=== PATIENT | female | born 1950 | race African-American/Black ===

== ENCOUNTER → 2018-02-04 | Outpatient (REF) | payer MEDICARE ==
[~2018-02-04] MED LIST: ALLOPURINOL100 MG PO; BACTRIM DS1 TAB OR; BACTRIM DS1 TAB PO; CEPHALEXIN500 MG OR; CLONIDINE0.1 MG PO; COLCHICINE0.6 M2 PO; EC ASPIRIN325 MG PO; ECOTRIN325 MG OR; ENTERIC COATED325 MG PO; GABAPENTIN100 MG PO; GLIMEPIRIDE2 MG PO; GLYBURIDE2.5 M1 OR; HYZAAR1 TA1 OR; HYZAAR1 TA2 PO; JANUVIA50 MG PO; LORTAB 7.57.5 MG PO; LOVASTATIN20 MG PO; METFORMIN500 M1 PO; METFORMIN500 MG PO; NITROSTAT0.4 MG PO; NORVASC10 M1 PO; NORVASC5 MG OR; NYSTATIN100000 M1 MT; PRAVACHOL40 MG PO; STERAPRED DS10 MG PO; TRAMADOL HCL50 MG PO; TRAVATAN0.004 % OP; TRAVATAN0.0041 OU; ULTRAM50 MG OR
== END | disposition home or self-care (01) ==
LOC: INF 07:41
PROVIDERS: ATTEND Internal Medicine
PROC: 3C1ZX8Z Irrigation of Indwelling Device using Irrigating Substance, External Approach (ICD-10-PCS; principal; 2018-02-04)
DX: Z45.2 Encounter for adjustment and management of vascular access device (principal)

== ENCOUNTER 2018-07-02 08:18 | Outpatient (REF) | payer MEDICARE | END 2018-07-02 16:58 | disposition home or self-care (01) | LOC: INF 08:18 | PROVIDERS: ATTEND Internal Medicine | PROC: 3C1ZX8Z Irrigation of Indwelling Device using Irrigating Substance, External Approach (ICD-10-PCS; principal; 2018-07-02) | DX: Z45.2 Encounter for adjustment and management of vascular access device (principal) ==

== ENCOUNTER 2018-07-28 10:03 | Emergency (ER) | payer MEDICARE ==
[~2018-07-28] VITALS: Ht 162.6 cm; Wt 125.9 kg
[2018-07-28] MEDS ORDERED: AMLODIPINE5 MG PO (10:18)
[2018-07-28 10:55] LABS: HEMATOCRIT 37.1 % (37.0-47.0); HEMOGLOBIN 11.9 g/dl (12.0-16.0); IMMATURE GRANULOCYTES 0.8 % (0.0-5.0); MEAN CELL VOLUME 98.4 fL CALC (80.0-100.0); MEAN CORPUSCULAR HGB 31.6 pG CALC (26.0-32.0); MEAN CORPUSCULAR HGB CONC 32.1 g/L CALC (32.0-36.0); NEUT# 3.07 thou/uL (2.00-7.15); RED BLOOD COUNT 3.77 mill/uL (4.20-5.60); RED CELL DISTRI WIDTH 13.2 % (11.5-15.5)
[2018-07-28 10:55] LABS: URINE BILIRUBIN - DIPSTICK NEGATIVE (NEGATIVE); URINE BLOOD DIPSTICK SMALL (NEGATIVE); URINE COLOR YELLOW; URINE GLUCOSE - DIPSTICK NEGATIVE (NEGATIVE); URINE KETONE NEGATIVE (NEGATIVE); URINE LEUK ESTERASE NEGATIVE (NEGATIVE); URINE NITRITE - DIPSTICK NEGATIVE (Negative); URINE PROTEIN - DIPSTICK NEGATIVE (NEG-TRACE); URINE UROBILINOGEN - DIPSTICK 0.2 E.U./dL (0.2)
[2018-07-28 11:05] LABS: URINE RBC 0-2 RBC/hpf (0-5); URINE SQUAMOUS EPITHELIAL CELL FEW EPI/hpf (0-FEW); URINE WBC 0-2 WBC/hpf (0-5)
[2018-07-28 11:20] LABS: ALBUMIN 4.2 g/dL (3.2-5.0); BILIRUBIN, TOTAL 0.4 mg/dL (0.0-1.4); CREATININE 1.3 mg/dL (0.5-1.0); POTASSIUM 3.6 mmol/l (3.5-5.1); TOTAL PROTEIN 7.8 g/dL (6.3-8.2)
[2018-07-28 12:30] VITALS: BP 159/70
== END 2018-07-28 13:03 | disposition home or self-care (01) ==
LOC: ED 10:03
PROVIDERS: Family Medicine
DX: R31.9 Hematuria, unspecified (principal); R10.32 Left lower quadrant pain; R10.31 Right lower quadrant pain
CPT/HCPCS: Q9967

== ENCOUNTER → 2018-07-30 | Outpatient (REF) | payer MEDICARE ==
[~2018-07-30] MED LIST changes: +AMLODIPINE5 MG PO
== END | disposition home or self-care (01) ==
LOC: INF 08:05
PROVIDERS: ATTEND Internal Medicine
PROC: 3C1ZX8Z Irrigation of Indwelling Device using Irrigating Substance, External Approach (ICD-10-PCS; principal; 2018-07-30)
DX: Z45.2 Encounter for adjustment and management of vascular access device (principal)

== ENCOUNTER 2019-11-14 18:20 | Observation (INO) | payer MEDICARE ==
[~2019-11-14] VITALS: Ht 162.6 cm; Wt 132.5 kg
--- NOTE | 2019-11-14 18:20 | NUR ---
PATIENT TO ROOM VIA WHEELCHAIR AND PHYSICIAN NOTIFIED OF PATIENT STATUS
--- NOTE | 2019-11-14 19:00 | NUR ---
PT IN NO DISTRESS, NO SOB OR CP
[2019-11-14 19:13] LABS: URINE BILIRUBIN - DIPSTICK NEGATIVE (NEGATIVE); URINE BLOOD DIPSTICK NEGATIVE (NEGATIVE); URINE COLOR YELLOW; URINE GLUCOSE - DIPSTICK NEGATIVE (NEGATIVE); URINE KETONE NEGATIVE (NEGATIVE); URINE LEUK ESTERASE NEGATIVE (NEGATIVE); URINE NITRITE - DIPSTICK NEGATIVE (Negative); URINE PH 5.5 (4.5-8.0); URINE PROTEIN - DIPSTICK 30 mg/dL (NEG-TRACE); URINE SPECIFIC GRAVITY >=1.030; URINE UROBILINOGEN - DIPSTICK 0.2 E.U./dL (0.2)
[2019-11-14 19:14] LABS: HEMATOCRIT 38.2 % (37.0-47.0); HEMOGLOBIN 12.3 g/dl (12.0-16.0); IMMATURE GRANULOCYTES 0.5 % (0.0-5.0); MEAN CELL VOLUME 97.7 fL CALC (80.0-100.0); MEAN CORPUSCULAR HGB 31.5 pG CALC (26.0-32.0); MEAN CORPUSCULAR HGB CONC 32.2 g/dL CAL (32.0-36.0); NEUT# 3.65 thou/uL (2.00-7.15); RED BLOOD COUNT 3.91 mill/uL (4.20-5.60)
[2019-11-14 19:16] LABS: URINE RBC 0-2 RBC/hpf (0-5); URINE SQUAMOUS EPITHELIAL CELL FEW EPI/hpf (0-FEW); URINE WBC 0-2 WBC/hpf (0-5)
--- NOTE | 2019-11-14 19:24 | NUR ---
XRAY AT BEDSIDE
[2019-11-14 19:33] LABS: ALKALINE PHOSPHATASE 78 u/l (38-126); ANION GAP 9 (6-22 (CALC)); BUN 26 mg/dL (8-23); BUN/CREATININE RATIO 26 (12-20 (CALC)); CARBON DIOXIDE 28 mmol/l (22-30); CHLORIDE 106 mmol/l (95-108); GFR 55 ML/MIN (>=60 (CALC)); GFR FOR AFR.AMER. > 60 ML/MIN (>=60 (CALC)); POTASSIUM 3.5 mmol/l (3.5-5.1); PROTHROMBIN TIME 10.4 SECONDS (9.0-12.5); SGOT/AST 47 u/l (9-36); SODIUM 139 mmol/l (137-146); TOTAL PROTEIN 8.8 g/dL (6.3-8.2)
[2019-11-14 19:35] LABS: ALBUMIN 4.7 g/dL (3.2-5.0); BILIRUBIN, TOTAL 0.4 mg/dL (0.0-1.4)
[2019-11-14 19:45] LABS: MYOGLOBIN 55 ng/mL (0 - 62)
--- NOTE | 2019-11-14 20:27 | NUR ---
TO BR VIA W/C.
--- NOTE | 2019-11-14 20:40 | NUR ---
TO RADIOLOGY VIA W/C WITH MASK FOR COVID
[2019-11-14] MEDS ORDERED: EYE DROPS (22:21)
[2019-11-14] MEDS ORDERED: ANTIBIOTIC (22:22)
--- NOTE | 2019-11-14 22:47 | NUR ---
REPORT TO ANJALI/NURSE MED SURG.
[2019-11-14 22:55] VITALS: BP 153/91
--- NOTE | 2019-11-14 22:55 | NUR ---
PT ARRIVED TO THE FLOOR VIA WHEELCHAIR, ACCOMPANIED BY ED STAFF. PT ALERT AND ORIENTED. ASSESSMENT COMPLETED AND VS OBTAINED. RESPIRATIONS EVEN AND UNLABORED ON RA. LUNG SOUND CLEAR. PEDAL PULSES WEAK. PT REPORTS HAVING PAIN IN RIGHT HIP AND LOWER BACK, PT MEDICATED WITH TYLENOL PER EMAR ORDERS. SKINS INTACT. TELE IN PLACE. PT ORIENTED TO ROOM AND CALL PAUL SYSTEM. WILL CONTINUE TO MONITOR.
--- NOTE | 2019-11-14 23:00 | NUR ---
PT TO BR VIA W/C THEN TO FLOOR WITH POCKET MONITOR.
[2019-11-15] VITALS (7 sets, daily range): BP systolic 126–152; BP diastolic 56–76
--- NOTE | 2019-11-15 01:15 | NUR ---
PT RYTHYM CONVERTED FROM AFIB TO SB ON TELE, EKG ORDERED, MD TO BE NOTIFIED. PT DENIES ANY CHEST PAIN OR SOB. SAFETY PRECAUTIONS IN PLACE. WILL CONTINUE TO MONITOR.
[2019-11-15 06:21] LABS: CHOLESTEROL HDL RATIO 2.7 (<4.4 (CALC)); MAGNESIUM 1.6 mg/dL (1.6-2.3)
--- NOTE | 2019-11-15 07:30 | NUR ---
RECIEVED REPORT FROM ANJALI ARAUZ. PT RESTING IN SMEI FOWLERS POSITION UPON ENTERING ROOM. RESPIRATIONS ARE EVEN AND UNLABORED WITH NO SIGNS OF DISTRESS. INTRODUCED SELF TO PT AND DISCUSSED POC. PT DENIES ANY PAIN OR DISCOMFORTS AT THIS TIME. ALL SAFTEY PRECAUTIONS IN PLACE WITH CALL LIGTH IN REACH. WILL CONTINUE TO MONITOR
--- NOTE | 2019-11-15 08:33 | NUR ---
ASSESSMENT AND VITALS COMPLETED A THIS TIME.PT IS A/O X3 AND AMBULATORY.LIMB ALERT BAND APPLIED TO LEFT ARM . BP 152/76, HR 60, O2 97% ON ROOM AIR. RESPIRATIONS ARE EVEN AND UNLABORED. LUNG SOUNDS ARE CLEAR. HEART RHYTHM IS NORMAL WITH TELE IN PLACE.BOWEL SOUNDS ARE ACTIVE IN ALL QUADRANTS WITH SLIGHT TENDERNESS IN LOWER LEFT QUADRANT. RADIAL AND PEDAL PULSES ARE STRONG WITH NORMAL CAPILLARY REFILL.PT PRESENTS WITH 1+ EDEMA IN LOWER EXTREMITIES, LEGS ELEVATED FOR ASSSISTANCE. #20G IV FLUSHED, SITE APPEARS HEALTHY AND PATENT.MORNING MEDICATIONS ADMINISTERED WITH NO DIFFICULTY.PT DENIES ANY PAIN OR DISCOMFORTS AT THIS TIME. ALL SAFTEY RECAUTIONS IN PLACE WITH CALL LIGHT IN REACH. WILL CONTINUE TO MONITOR
--- NOTE | 2019-11-15 09:16 | NUR ---
O.T. SCREENED PATIENT THIS A.M. AND PATIENT DOES NOT NEED O.T. AT THIS TIME DUE TO I IN ADLS/TRANSFERS, HOWEVER, PT. REPORTED L KNEE/ANKLE OA AND MAY BENEFIT FROM A P.T. EVAL.
--- NOTE | 2019-11-15 10:30 | NUR ---
KELLEE RECIEVED CALL FROM ER STATING PT HR WAS IN THE 40'S. UPON ENTERING ROOM, PT STATED THAT SHE WAS FINE AND JUST WANTED TO REST. PT INFORMED WRITTER THAT HER PHONE IN THE ROOM WAS NO WORKING BUT DID NOT WANT IT REPLACED BECAUSE SHE JUST WANTED TO REST. WRITTER INFORMED PT THAT WHEN SHE NEEDED TO MAKE A CALL TO INFORM WRITTER AND PHONE WILL BE REPLACED. RESPIRATIONS ARE EVEN AND UNLBAORED AT THIS TIME. ALL SAFETY PRECAUTIONS IN PLACE WITH CALL LIGHT IN REACH. WILL CONTINUE TO MONITOR
--- NOTE | 2019-11-15 11:24 | NUR ---
RESPIRATORY AT BEDSIDE COMPLETING AN EKG. RESPIRATIONS ARE EVEN AND UNLABORED WITH NO SIGNS OF DISTRESS. PT DENIES ANY PAIN OR DISCOMFORTS AT THIS TIME. ALL SATEY PRECAUTIONS IN PLACE WITH CALL LIGHT IN REACH. WILL CONTINUE TO MONITOR
--- NOTE | 2019-11-15 11:50 | NUR ---
PT COMPLAINING OF 7/10 LOWER BACK PAIN. TYLENOL ADMINISTERED AT THIS TIME. RESPIRATIONS ARE EVEN AND UNLABORED WITH NO SIGNS OF DISTRESS. PT DENIES ANY OTHER PAINS OR DISCOMFORTS. ALL SAFTEY PRECAUTIONS IN PLACE WITH CALL LIGHT IN REACH. WILL CONTINUE TO MONITOR.
--- NOTE | 2019-11-15 11:51 | NUR ---
DR. VU AT BEDSIDE DISCUSSING POC
--- NOTE | 2019-11-15 16:30 | NUR ---
PT RESTING IN LOW FOWLERS POSITION WATCHING TV. RESPIRATIONS ARE EVEN AND UNLABORED WITH NO SIGNS OF DISTRESS. PT DENIES ANY PAIN OR NEEDS AT THIS TIME.TELE IN PLACE. ALL SAFTEY PRECAUTIONS IN PLACE WITH CALL LIGHT IN REACH. WILL CONTINUE TO MONITOR
--- NOTE | 2019-11-15 17:21 | NUR ---
PT GLUCOSE RESULTING IN 68,
--- NOTE | 2019-11-15 17:52 | NUR ---
PT COMPLAINS OF HAVING INDIGESTION AT THIS TIME. SUGGESTED PT WALK AROUND HALLS TO ASSSIST. PT DENIED AND REQUESTED MOM. MOM TO BE ADMINISTERED AT THIS TIME. RESPRATIONS ARE EVEN AND UNLABORED WITH NO SIGNS OF DISTRESS. PT DENIES ANY OTHER PAINS OR DISCOMFORTS AT THIS TIME.ALL SAFTEY PRECAUTIONS IN PLACE WITH CALL LIGHT IN REACH. WILL CONTINUE TO MONITOR
--- NOTE | 2019-11-15 20:11 | NUR ---
Patient is screened for PT intervention and there are no needs at this time
--- NOTE | 2019-11-15 20:19 | NUR ---
PT RESTING IN BED, ALERT AND ORIENTED. RESPIRATIONS EVEN AND UNLABORED ON RA. LUNGS SOUND CLEAR. PEDAL PULSES STRONG. PT REPORTS ACHING PAIN STARTING IN HER RIGHT HIP, PT MEDICATED PER EMAR ORDERS. PT PROVIDED WITH APPLE JUICE PROVIDED, PER REQUEST. TELE IN PLACE. CALL PAUL WITHIN REACH. WILL CONTINUE TO MONITOR.
--- NOTE | 2019-11-16 | NUR ---
PT RESTING IN BED, RESPIRATIONS EVEN AND UNLABORED ON RA. NO S/S OF DISTRESS AT THIS TIME. SAFETY PRECAUTIONS IN PLACE. WILL CONTINUE TO MONITOR.
[2019-11-16 03:30] VITALS: BP 117/57
--- NOTE | 2019-11-16 04:36 | NUR ---
PT RESTING IN BED, RESPIRATIONS EVEN AND UNLABORED ON RA. NO S/S OF DISTRESS AT THIS TIME. SAFETY PRECAUTIONS IN PLACE. WILL CONTINUE TO MONITOR.
[2019-11-16 07:19] VITALS: BP 134/83
--- NOTE | 2019-11-16 07:24 | NUR ---
REPORT RECEIVED FROM REGLA ALBA. PT SUPINE IN BED. REPORTS FEELING "GROGGY" R/T ONLY SLEEPING 2 HOURS. PT. DENIES PAIN. REPORTING OF CONCERNS ENCOURAGED. PLAN OF CARE DISCUSSED. FALL PRECAUTIONS REINFORCED. CALL LIGHT REVIEWED AND IN REACH. PT STATES UNDERSTANDING.
--- NOTE | 2019-11-16 09:46 | NUR ---
COY PETERSEN IN TO SEE PT. PLAN OF CARE UPDATED.
[2019-11-16 11:18] VITALS: BP 147/64
--- NOTE | 2019-11-16 12:52 | NUR ---
Discharge instructions given. Patient verbalizes understanding of same. Discharged in stable condition via Wheelchair to Home with FAMILY . All belongings sent with pt.
== END 2019-11-16 13:04 | disposition home or self-care (01) ==
LOC: ED 18:20 → ED-I 21:15 → ED 21:31 → MS2 21:32
PROVIDERS: Emergency Medicine; ADMIT Internal Medicine; ATTEND Internal Medicine
DX: I44.1 Atrioventricular block, second degree (principal); I10 Essential (primary) hypertension; E11.40 Type 2 diabetes mellitus with diabetic neuropathy, unspecified; E78.5 Hyperlipidemia, unspecified; E66.9 Obesity, unspecified; Z79.84 Long term (current) use of oral hypoglycemic drugs; Z86.73 Personal history of transient ischemic attack (TIA), and cerebral infarction without residual deficits; Z85.3 Personal history of malignant neoplasm of breast; Z92.3 Personal history of irradiation; Z92.21 Personal history of antineoplastic chemotherapy; Z20.828 Contact with and (suspected) exposure to other viral communicable diseases; M79.89 Other specified soft tissue disorders
CPT/HCPCS: G0378; J1650; Q9967

== ENCOUNTER 2019-12-08 15:09 | Observation (INO) | payer MEDICARE ==
[~2019-12-08] VITALS: Ht 162.6 cm; Wt 127.6 kg
[~2019-12-08 15:09] MED LIST changes: +ANTIBIOTIC; +EYE DROPS
--- NOTE | 2019-12-08 15:10 | NUR ---
PT TO ROOM VIA WC
--- NOTE | 2019-12-08 16:10 | NUR ---
AT [facility]
[2019-12-08] MEDS ORDERED: ATORVASTATIN CA20 MG PO (16:26)
[2019-12-08] MEDS ORDERED: FARXIGA5 MG PO (16:26)
[2019-12-08] MEDS ORDERED: FISH OIL1000 M2 PO (16:27)
[2019-12-08] MEDS ORDERED: TRAVATAN Z0.004 % OU (16:27)
[2019-12-08] MEDS ORDERED: VITAMIN D32000 UNIT PO (16:28)
[2019-12-08 16:32] LABS: HEMATOCRIT 36.1 % (37.0-47.0); HEMOGLOBIN 11.4 g/dl (12.0-16.0); IMMATURE GRANULOCYTES 0.5 % (0.0-5.0); MEAN CELL VOLUME 97.3 fL CALC (80.0-100.0); MEAN CORPUSCULAR HGB 30.7 pG CALC (26.0-32.0); MEAN CORPUSCULAR HGB CONC 31.6 g/dL CAL (32.0-36.0); NEUT# 3.25 thou/uL (2.00-7.15); RED BLOOD COUNT 3.71 mill/uL (4.20-5.60); RED CELL DISTRI WIDTH 13.7 % (11.5-15.5)
[2019-12-08 16:54] LABS: ALBUMIN 4.1 g/dL (3.2-5.0); BILIRUBIN, TOTAL 0.4 mg/dL (0.0-1.4); CREATININE 1.1 mg/dL (0.5-1.0); POTASSIUM 3.9 mmol/l (3.5-5.1); TOTAL PROTEIN 7.5 g/dL (6.3-8.2)
[2019-12-08 16:57] LABS: PROTHROMBIN TIME 10.2 SECONDS (9.0-12.5)
--- NOTE | 2019-12-08 17:00 | NUR ---
PT RESTING ON STRETCHER; NO S/S OF DISTRESS NOTED; VSS; PT DENIES ANY NEEDS AT THIS TIME
--- NOTE | 2019-12-08 18:00 | NUR ---
SBAR PRINTED TO FLOOR
--- NOTE | 2019-12-08 19:03 | NUR ---
REPORT CALLED TO REGLA GIRON-
--- NOTE | 2019-12-08 19:10 | NUR ---
Admission Note Report Given to: REGLA GIRON Transported by: X Wheelchair Stretcher Transported with: X Nurse Transporter X Patent IV O2 X Business Job Titles Location: ICU X [facility]
--- NOTE | 2019-12-08 19:40 | NUR ---
PT ARRIVED TO MED SURG FLOOR VIA WC ACCOMPANIED BY ED NURSE. PT APPEARS TO BE STABLE AT THIS TIME. V/S ASSESSED, REFINERY OPERATOR VISBREAKING IN W/PT ORIENTING TO ROOM, CALL SYSTEM, LIGHTS AND BED. PT SELF AMBULATED TO SCALE AND TO BED.
[2019-12-08 19:45] VITALS: BP 146/63
--- NOTE | 2019-12-08 22:00 | NUR ---
PT ASSESSMENT AND ADMISSION COMPLETED AT THIS TIME. NO S/O DISTRESS NOTED. PT REPORTS PAIN TO LUQ CHEST NEAR THE L.SHOULDER. DENIES RADIATING PAIN INTO THE ARM OR NECK AREA. DENIES SOB/N/V/D. REPORTS THAT SHE HAD A STRESS TEST ON November AND THAT SHE HAD AN ECHO ON November. 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 PT PROVIDED FOOD WHEN SHE FIRST ARRIVED/REQUEST, WATER PROVIDED. PT OFFERED ADDITIONAL PILLOWS FOR COMFORT. MEDICATIONS DISCUSSED PER MED-REQ. PT REPORTS HAVING TAKEN ALL MEDICATIONS THIS DAY EARLIER OTHER THAN ATORVISTATIN AND GABAPENTIN. WILL CONTACT PHYSICIAN FOR ORDERS.
--- NOTE | 2019-12-08 22:47 | NUR ---
PHYSICAN NOTIFIED AND ORDERS RECEIVED FOR HOME MEDICATIONS.
--- NOTE | 2019-12-08 23:37 | NUR ---
PT MEDICATED ORDERS PROVIDE. PT TALKING ABOUT TV SHOW, APPEARS STABLE AT THIS TIME. DENIES ANY OTHER NEEDS, CALL LIGHT IN HAND
[2019-12-09 00:18] VITALS: BP 138/79
[2019-12-09 04:00] VITALS: BP 141/76
--- NOTE | 2019-12-09 05:50 | NUR ---
PT SLEEPING, NO S/O DISTRESS NOTED.
--- NOTE | 2019-12-09 08:09 | NUR ---
PT ASSESSMENT/VITALS COMPLETED AT THIS TIME. NO DISTRESS NOTED. PT REPORTS PAIN TO LUQ CHEST NEAR THE LEFT SHOULDER. PT DENIES N OR V. DISCUSSED POC. PT ENCOURAGED TO CALL FOR ANY NEEDS. WILL CONTINUE TO OBSERVE. CALL PAUL PLACE WITHIN REACH.
[2019-12-09 08:10] VITALS: BP 144/72
--- NOTE | 2019-12-09 10:06 | NUR ---
EKG PREFORMED AT BEDSIDE.
[2019-12-09 11:00] VITALS: BP 140/80
--- NOTE | 2019-12-09 11:15 | NUR ---
PHLEBOTOMY AT BEDSIDE
--- NOTE | 2019-12-09 14:18 | NUR ---
PT. RESTING IN BED WITH NO RESP. MILD CHEST/SHOULDER PAIN. DISTRESS NOTED. DENIES NEEDS AND VOICES NO COMPLAINTS. UPDATED ON POC. IV SITE PATENT. ENCOURAGED TO CALL FOR ANY NEEDS.
--- NOTE | 2019-12-09 15:14 | NUR ---
REMOVED PTS IV (RIGHT AC). CATHETER INTACT.IV SITE APPEARS HEALTHY WITH NO REDDNESS OR SWELLING. PT TOLERATED REMOVAL WELL.
--- NOTE | 2019-12-09 15:18 | NUR ---
Discharge instructions given. Patient verbalizes understanding of same. Discharged in stable condition via Wheelchair to Home with father. All belongings sent with pt.
== END 2019-12-09 15:03 | disposition home or self-care (01) ==
LOC: ED 15:09 → ED-I 17:17 → ED 18:00 → ED-I 18:01 → MS2 18:01
PROVIDERS: Family Medicine; ADMIT Internal Medicine; ATTEND Internal Medicine
DX: R07.9 Chest pain, unspecified (principal); I44.1 Atrioventricular block, second degree; I10 Essential (primary) hypertension; E11.9 Type 2 diabetes mellitus without complications; E78.5 Hyperlipidemia, unspecified; E66.9 Obesity, unspecified; Z68.42 Body mass index [BMI] 45.0-49.9, adult; Z86.73 Personal history of transient ischemic attack (TIA), and cerebral infarction without residual deficits; Z85.3 Personal history of malignant neoplasm of breast; Z92.21 Personal history of antineoplastic chemotherapy; Z92.3 Personal history of irradiation; Z79.84 Long term (current) use of oral hypoglycemic drugs; Z95.828 Presence of other vascular implants and grafts; Z20.828 Contact with and (suspected) exposure to other viral communicable diseases
CPT/HCPCS: G0378

== ENCOUNTER 2020-08-15 | Emergency (ER) | payer MEDICARE, MEDICAID ==
[~2020-08-15] MED LIST changes: +ATORVASTATIN CA20 MG PO; +FARXIGA5 MG PO; +FISH OIL1000 M2 PO; +TRAVATAN Z0.004 % OU; +VITAMIN D32000 UNIT PO
[2020-08-15] MEDS ORDERED: CYCLOBENZAPRINE10 MG PO (13:38)
[2020-08-15] MEDS ORDERED: ULTRAM50 M1 PO (13:38)
[2020-08-15 13:40] LABS: URINE BILIRUBIN - DIPSTICK NEGATIVE (NEGATIVE); URINE BLOOD DIPSTICK NEGATIVE (NEGATIVE); URINE COLOR YELLOW; URINE GLUCOSE - DIPSTICK >=1000 mg/dL (NEGATIVE); URINE KETONE NEGATIVE (NEGATIVE); URINE LEUK ESTERASE NEGATIVE (NEGATIVE); URINE NITRITE - DIPSTICK NEGATIVE (Negative); URINE PROTEIN - DIPSTICK TRACE mg/dL (NEG-TRACE); URINE UROBILINOGEN - DIPSTICK 0.2 E.U./dL (0.2)
== END 2020-08-15 14:24 | disposition home or self-care (01) ==
PROVIDERS: Emergency Medicine
DX: M47.816 Spondylosis without myelopathy or radiculopathy, lumbar region (principal); I10 Essential (primary) hypertension; E11.9 Type 2 diabetes mellitus without complications; Z85.3 Personal history of malignant neoplasm of breast; Z79.84 Long term (current) use of oral hypoglycemic drugs

== ENCOUNTER 2021-09-01 09:40 | Emergency (ER) | payer OTHER, MEDICARE, MEDICAID ==
[~2021-09-01] VITALS: Ht 162.6 cm; Wt 114.0 kg
[~2021-09-01 09:40] MED LIST changes: +CYCLOBENZAPRINE10 MG PO; +ULTRAM50 M1 PO
[2021-09-01 09:48] VITALS: BP 164/94; BP 173/93
[2021-09-01 10:00] VITALS: BP 144/88
[2021-09-01] MEDS ORDERED: TOBREX OPTH5 ML/BTL OS (11:24)
[2021-09-01 11:44] VITALS: BP 144/88
== END 2021-09-01 11:58 | disposition home or self-care (01) | DRG 605 ==
LOC: ED 09:40
DX: S70.02XA Contusion of left hip, initial encounter (principal); H10.9 Unspecified conjunctivitis; I10 Essential (primary) hypertension; E11.9 Type 2 diabetes mellitus without complications; V59.40XA Driver of pick-up truck or van injured in collision with unspecified motor vehicles in traffic accident, initial encounter; Z85.3 Personal history of malignant neoplasm of breast; Z79.84 Long term (current) use of oral hypoglycemic drugs; Z79.01 Long term (current) use of anticoagulants